=== PATIENT | female | born 1985 | race American Indian/Alaskan Native ===

== ENCOUNTER 2017-01-02 13:50 | Outpatient (CLI) | payer BC ==
--- NOTE | 2017-01-02 14:15 | XRay Report ---
RIGHT KNEE RADIOGRAPHS INDICATION: Knee pain. COMPARISON: None similar at this institution. FINDINGS: Standing AP, lateral and sunrise views of the right knee suggest mild to moderate medial compartment narrowing. Mild degenerative spurring. Intact overall articulation. No suprapatellar effusion. CONCLUSION: Right knee medial compartment degenerative changes, as described. Thank you for the opportunity to participate in this patient's care.
== END 2017-01-02 13:51 | disposition home or self-care (01) ==
LOC: SPVIMAG 13:50
PROVIDERS: ATTEND Orthopaedic Surgery
DX: M17.11 Unilateral primary osteoarthritis, right knee (principal)